=== PATIENT | male | born 1950 | race Caucasian/White ===

== ENCOUNTER 2017-10-25 07:53 | Emergency (ER) | END 2017-10-25 09:40 | disposition home or self-care (01) ==

== ENCOUNTER 2018-05-24 05:32 | Day surgery (SDC) | END 2018-05-24 10:11 | disposition home or self-care (01) ==

== ENCOUNTER 2019-03-24 05:50 | Day surgery (SDC) | payer OTHER ==
[~2019-03-24] VITALS: Ht 172.7 cm; Wt 90.4 kg
[~2019-03-24 05:50] MED LIST: ASC500 PO; CHOL100062 PO; DOCU-144 PO; ENAL20TA PO; FINA5TAB4 PO; FLUO10TA PO; IBUP-1545 PO; LATA2.5D2 BOTH EYES; METF100010 PO; SENN-120 PO; SIMV20TA2 PO
[2019-03-24 06:58] VITALS: Ht 172.7 cm; Wt 90.4 kg
[2019-03-24 07:25] VITALS: BP 162/76; PULSE 64; RESP 18
[2019-03-24 07:34] VITALS: BP 162/76; PULSE 63; RESP 20
[2019-03-24] MEDS ORDERED: LIDOCAINE 2% (SDV) 5 ML INJ ONE (07:44)
[2019-03-24] MEDS ORDERED: PROPOFOL 40 ML ONE (07:44)
[2019-03-24] MEDS ORDERED: hydrALAzine 20 MG INJ IV PRN (08:00)
[2019-03-24] MEDS ORDERED: ONDANSETRON 4 MG INJ IV PRN (08:00)
[2019-03-24] MEDS ORDERED: FENTAnyl 50 MCG/ML VIAL IV PRN ×2 (08:00)
[2019-03-24] MEDS ORDERED: ACETAMINOPHEN 500 MG TAB PO PRN (08:00)
[2019-03-24] MEDS ORDERED: ALBUTEROL 0.083% (NEB) 2.5 MG/3 ML AMP HHN PRN (08:00)
[2019-03-24] MEDS ORDERED: LABETALOL HCL 20MG INJ IV PRN (08:00)
[2019-03-24] MEDS ORDERED: EPHEDrine 25 MG/5 ML SYG IV PRN (08:00)
[2019-03-24 08:32] VITALS: BP 131/73; PULSE 56; RESP 16
== END 2019-03-24 09:53 | disposition home or self-care (01) ==
LOC: GIL 05:50
PROVIDERS: ATTEND Internal Medicine Gastroenterology
DX: Z12.11 Encounter for screening for malignant neoplasm of colon (principal); K64.4 Residual hemorrhoidal skin tags; E11.9 Type 2 diabetes mellitus without complications; I10 Essential (primary) hypertension; Z79.84 Long term (current) use of oral hypoglycemic drugs
CPT/HCPCS: 82962